=== PATIENT | female | born 1980 | race African-American/Black ===

== ENCOUNTER 2017-01-03 19:05 | Emergency (ER) | payer OTHER ==
[~2017-01-03] VITALS: Ht 160 cm; Wt 83.9 kg
[~2017-01-03 19:05] MED LIST: ANTIVERT25 MG PO; BENTYL10 MG PO; DIPHTHERIA TOXOID IM; HYDROCHLOROTHIA25 MG PO; LEXAPRO10 MG PO; LEXAPRO20 MG PO; MAGNESIUM250 MG PO; PROMETHAZINE HC25 M1 PO; TETANUS TOXOID IM; Vicodin,Lortab 5/500 PO; ZOFRAN4 MG PO
[2017-01-03 20:34] LABS: HEMATOCRIT 40.3 % (36.0-46.0); MCH 30.2 PG (29.0-34.0); MCHC 33.7 G/DL (30.0-36.0); MCV 89.4 FL (83-99); MEAN PLAT.VOLUME 10.2 uM^3 (9.5-12.4); PLATELET COUNT 357 K/uL (156-360); RBC DIS.WIDTH-CV 12.5 % (11.8-14.6); RBC DIS.WIDTH-SD 40.7 % (39-53); RED BLOOD COUNT 4.51 M/uL (3.80-5.20)
[2017-01-03 20:42] LABS: CHLORIDE 98 mEq/L (99-109); POTASSIUM 2.9 mEq/L (3.7-5.4); SODIUM 134 mEq/L (136-147)
[2017-01-03 20:44] LABS: GLUCOSE 110 mg/dL (70-99)
[2017-01-03 20:45] LABS: ANION GAP 16 MEQ/L (2-14)
[2017-01-03 20:46] LABS: TOTAL BILIRUBIN 0.5 mg/dL (0.0-1.0)
[2017-01-03 20:47] LABS: ALKALINE PHOSPHATASE 58 IU/L (3-129)
[2017-01-03 20:48] LABS: GFR ESTIMATE (CALCULATED) > 59 mL/min/
[2017-01-03 20:49] LABS: UREA NITROGEN (BUN) 10 mg/dL (9-23)
[2017-01-03] MEDS ORDERED: ZOFRAN ODT4 MG PO (21:57)
[2017-01-03 22:12] LABS: QUANTITATIVE HCG < 4.0 MIU/ML
[2017-01-03 22:48] LABS: ADD MIUA? NO; BILIRUBIN NEGATIVE; BLOOD NEGATIVE; COLOR STRAW ((YELLOW)); GLUCOSE (STRIP) NEGATIVE; KETONES NEGATIVE; LEUKOCYTES NEGATIVE; NITRITE NEGATIVE; PROTEIN (STRIP) NEGATIVE; SPECIFIC GRAVITY 1.006 (1.000-1.030); UCUL ADDED? NO; UROBILINOGEN 0.2 MG/DL (0.2-1.0)
[2017-01-03 23:41] VITALS: BP 138/91
== END 2017-01-03 21:58 | disposition home or self-care (01) ==
LOC: EME 19:05
DX: E87.6 Hypokalemia (principal); R11.2 Nausea with vomiting, unspecified; R19.7 Diarrhea, unspecified; E86.0 Dehydration; E78.5 Hyperlipidemia, unspecified; I10 Essential (primary) hypertension; K21.9 Gastro-esophageal reflux disease without esophagitis; F17.200 Nicotine dependence, unspecified, uncomplicated
CPT/HCPCS: 80053; 81003; 84439; 84443; 84702; 85027; 99281; 99283; J1885; J7030